=== PATIENT | female | born 1930 | race Caucasian/White ===

== ENCOUNTER 2017-09-09 15:02 | Inpatient (IN) | payer OTHER, MEDICARE ==
[~2017-09-09] VITALS: Ht 147.3 cm; Wt 65.4 kg
[2017-09-09 15:10] VITALS: BP_SYST 136
[2017-09-09 15:36] LABS: BASOPHILS % (AUTO) 0.6 % (0.0-2.0); EOSINOPHILS # (AUTO) 0.3 K/uL (0.0-0.4); EOSINOPHILS % (AUTO) 4.6 % (0.0-4.0); HEMATOCRIT 37.5 % (36-48); HEMOGLOBIN 12.8 g/dL (12.0-16.0); LYMPHOCYTES # (AUTO) 1.3 K/uL (1.0-5.5); LYMPHOCYTES % (AUTO) 18.4 % (20.5-51.5); MEAN CORPUSCULAR HEMOGLOBIN 31 pg (27-31); MEAN CORPUSCULAR HGB CONC 34 % (32-36); MEAN CORPUSCULAR VOLUME 90 fL (79.0-98.0); MONOCYTES # (AUTO) 0.6 K/uL (0.0-1.0); MONOCYTES % (AUTO) 8.3 % (1.7-9.3); NEUTROPHILS % (AUTO) 68.1 % (40.0-70.0); PLATELET COUNT (AUTO) 207 K/uL (130-430); RED BLOOD CELL COUNT(AUTO) 4.16 MIL/uL (4.2-6.2); RED CELL DISTRIBUTION WIDTH 11.3 % (9.0-15.0); WHITE BLOOD COUNT (AUTO) 7.2 K/uL (4.8-10.8)
[2017-09-09 15:44] LABS: ANION GAP 5 (5-15); CHLORIDE 104 mmol/L (98-107); CREATININE 1.19 mg/dL (0.55-1.30); GLUCOSE 155 mg/dL (70-99); SODIUM SERUM 137 mmol/L (136-145); UREA NITROGEN, BLOOD 16 mg/dL (8-21)
[2017-09-09 15:49] LABS: ALANINE AMINOTRANSFERASE 19 U/L (12-78); ALBUMIN 3.5 g/dL (3.4-4.8); ASPARTATE AMINOTRANSFERASE 24 U/L (10-37); TOTAL BILIRUBIN 0.4 mg/dL (0.0-1.0)
[2017-09-09 15:50] LABS: INR 0.9 (0.8-1.2); PROTHROMBIN TIME 8.7 SECS (9.5-12.5)
[2017-09-09] MEDS ORDERED: VENL75CA PO (16:15)
[2017-09-09] MEDS ORDERED: VALS160T2 PO (16:15)
[2017-09-09] MEDS ORDERED: VITD2000 PO (16:15)
[2017-09-09] MEDS ORDERED: SIMV10TA6 PO (16:15)
[2017-09-09] MEDS ORDERED: ASPIRIN 81 MG TAB.CHEW PO ONE (17:00)
[2017-09-09 18:51] VITALS: BP_SYST 135
[2017-09-09] MEDS ORDERED: ZOLPIDEM TARTRATE 5 MG TABLET PO PRN (20:15)
[2017-09-09] MEDS ORDERED: ACETAMINOPHEN 325 MG TABLET PO PRN (20:15)
[2017-09-09] MEDS ORDERED: MORPHINE 2 MG/ML INJ. SYRINGE IVP PRN (20:15)
[2017-09-09] MEDS ORDERED: ONDANSETRON HCL 4 MG/2 ML VIAL IVP PRN (20:15)
[2017-09-09 20:30] VITALS: BP_SYST 131
[2017-09-09] MEDS: SIMVASTATIN 10 MG TABLET PO SCH (20:44)
[2017-09-09] MEDS ORDERED: MILK OF MAGNESIA 30 ML UDC PO PRN (21:45)
[2017-09-09] MEDS ORDERED: MILK OF MAGNESIA 30 ML UDC PO ONE (22:00)
[2017-09-09] MEDS: DOCUSATE SODIUM 250 MG CAPSULE PO SCH (22:22)
[2017-09-09] MEDS ORDERED: HYDROcodone/ACETAMIN 5-325 MG TAB (NORCO/ VICODIN) PO PRN ×2 (22:30)
[2017-09-09 22:37] VITALS: BP_SYST 130
[2017-09-10 07:28] LABS: BASOPHILS % (AUTO) 0.7 % (0.0-2.0); EOSINOPHILS # (AUTO) 0.4 K/uL (0.0-0.4); EOSINOPHILS % (AUTO) 7.1 % (0.0-4.0); HEMATOCRIT 33.2 % (36-48); HEMOGLOBIN 11.3 g/dL (12.0-16.0); LYMPHOCYTES # (AUTO) 1.5 K/uL (1.0-5.5); LYMPHOCYTES % (AUTO) 27.1 % (20.5-51.5); MEAN CORPUSCULAR HEMOGLOBIN 31 pg (27-31); MEAN CORPUSCULAR HGB CONC 34 % (32-36); MEAN CORPUSCULAR VOLUME 90 fL (79.0-98.0); MONOCYTES # (AUTO) 0.5 K/uL (0.0-1.0); MONOCYTES % (AUTO) 9.6 % (1.7-9.3); NEUTROPHILS # (AUTO) 3.2 K/uL (1.8-7.7); PLATELET COUNT (AUTO) 187 K/uL (130-430); RED BLOOD CELL COUNT(AUTO) 3.71 MIL/uL (4.2-6.2); RED CELL DISTRIBUTION WIDTH 11.2 % (9.0-15.0); WHITE BLOOD COUNT (AUTO) 5.6 K/uL (4.8-10.8)
[2017-09-10 07:45] VITALS: BP_SYST 136
[2017-09-10 08:01] LABS: ANION GAP 5 (5-15); CALCIUM 9.5 mg/dL (8.4-11.0); CHLORIDE 109 mmol/L (98-107); CREATININE 0.84 mg/dL (0.55-1.30); GLUCOSE 88 mg/dL (70-99); POTASSIUM 4.6 mmol/L (3.5-5.1); SODIUM SERUM 142 mmol/L (136-145); UREA NITROGEN, BLOOD 15 mg/dL (8-21)
[2017-09-10 08:10] LABS: TOTAL BILIRUBIN 0.3 mg/dL (0.0-1.0)
[2017-09-10 08:11] LABS: ALANINE AMINOTRANSFERASE 10 U/L (12-78); ALBUMIN 2.8 g/dL (3.4-4.8); ASPARTATE AMINOTRANSFERASE 22 U/L (10-37); LIPASE 88 U/L (73-393); THYROID STIMULATING HORMONE 1.96 uIu/mL (0.36-3.74)
[2017-09-10 08:22] LABS: BILIRUBIN,URINE NEGATIVE (NEGATIVE); BLOOD, URINE NEGATIVE (NEGATIVE); CLARITY/URINE CLEAR (CLEAR); COLOR,URINE YELLOW (YELLOW); GLUCOSE,URINE NEGATIVE (NEGATIVE); KETONES,URINE NEGATIVE (NEGATIVE); LEUKOCYTE ESTERASE ,URINE NEGATIVE (NEGATIVE); NITRITE, URINE NEGATIVE (NEGATIVE); PROTEIN URINE NEGATIVE (NEGATIVE); UROBILINOGEN,URINE 0.2 (0.2-1.0)
[2017-09-10 08:45] LABS: NEUTROPHILS % (AUTO) 55.5 % (40.0-70.0)
[2017-09-10] MEDS: CHOLECALCIFEROL (VITAMIN D3) 2,000 UNIT TABLET PO SCH (08:53)
[2017-09-10] MEDS: DOCUSATE SODIUM 250 MG CAPSULE PO SCH ×2 (08:53→20:53)
[2017-09-10] MEDS: Effexor 37.5 MG TAB PO SCH ×2 (08:53→20:53)
[2017-09-10] MEDS ORDERED: VALSARTAN 160 MG TABLET (DIOVAN) PO SCH (09:00)
[2017-09-10] MEDS ORDERED: METOPROLOL SUCCINATE 50 MG TAB.SR.24H (TOPROL XL) PO ONE (11:15)
[2017-09-10 11:33] VITALS: BP_SYST 135
[2017-09-10] MEDS ORDERED: DOCUSATE SODIUM 250 MG CAPSULE PO SCH (14:30)
[2017-09-10 15:28] VITALS: BP_SYST 143
[2017-09-10 19:15] VITALS: BP_SYST 146
[2017-09-10] MEDS: SIMVASTATIN 10 MG TABLET PO SCH (20:53)
[2017-09-11 00:59] VITALS: BP_SYST 122; BP_SYST 156
[2017-09-11 08:20] VITALS: BP_SYST 151
[2017-09-11] MEDS: DOCUSATE SODIUM 250 MG CAPSULE PO SCH ×2 (08:29→20:47)
[2017-09-11] MEDS: Effexor 37.5 MG TAB PO SCH ×2 (08:30→20:47)
[2017-09-11] MEDS: ASPIRIN 81 MG TAB.CHEW PO SCH (08:30)
[2017-09-11] MEDS: CHOLECALCIFEROL (VITAMIN D3) 2,000 UNIT TABLET PO SCH (08:30)
[2017-09-11] MEDS ORDERED: METOPROLOL SUCCINATE 50 MG TAB.SR.24H (TOPROL XL) PO SCH (09:00)
[2017-09-11 12:58] VITALS: BP_SYST 145
[2017-09-11 16:00] VITALS: BP_SYST 170
[2017-09-11] MEDS ORDERED: cloNIDine HCL 0.2 MG TABLET PO PRN (17:15)
[2017-09-11 19:00] VITALS: BP_SYST 120
[2017-09-11 20:00] VITALS: BP_SYST 125
[2017-09-11] MEDS: SIMVASTATIN 10 MG TABLET PO SCH (20:47)
[2017-09-11] MEDS: METOPROLOL SUCCINATE 50 MG TAB.SR.24H (TOPROL XL) PO SCH (20:48)
[2017-09-12] VITALS: BP_SYST 127
[2017-09-12 07:45] VITALS: BP_SYST 155
[2017-09-12] MEDS: ASPIRIN 81 MG TAB.CHEW PO SCH (09:18)
[2017-09-12] MEDS: DOCUSATE SODIUM 250 MG CAPSULE PO SCH (09:18)
[2017-09-12] MEDS: CHOLECALCIFEROL (VITAMIN D3) 2,000 UNIT TABLET PO SCH (09:18)
[2017-09-12] MEDS: Effexor 37.5 MG TAB PO SCH (09:18)
[2017-09-12] MEDS: METOPROLOL SUCCINATE 50 MG TAB.SR.24H (TOPROL XL) PO SCH (09:19)
[2017-09-12 12:12] VITALS: BP_SYST 129
[2017-09-12] MEDS ORDERED: METO50TA7 PO ×2 (12:58→13:13)
[2017-09-12] MEDS ORDERED: ASA81 PO (12:58)
[2017-09-12] MEDS ORDERED: ASPI-1063 PO (13:17)
[2017-09-12 14:20] VITALS: BP_SYST 129
== END 2017-09-12 14:30 | disposition home health service (06) | DRG 309 ==
LOC: SED 15:02 → STU 17:52 → SMU 09-11 19:33
PROVIDERS: ADMIT Internal Medicine; ATTEND Internal Medicine
DX: I47.1 Supraventricular tachycardia (principal); I24.8 Other forms of acute ischemic heart disease; I48.91 Unspecified atrial fibrillation; J44.9 Chronic obstructive pulmonary disease, unspecified; M48.02 Spinal stenosis, cervical region; I10 Essential (primary) hypertension; E78.5 Hyperlipidemia, unspecified; F41.9 Anxiety disorder, unspecified; K21.9 Gastro-esophageal reflux disease without esophagitis; G47.33 Obstructive sleep apnea (adult) (pediatric); M81.0 Age-related osteoporosis without current pathological fracture; J30.9 Allergic rhinitis, unspecified; I49.9 Cardiac arrhythmia, unspecified; Z87.891 Personal history of nicotine dependence; Z90.710 Acquired absence of both cervix and uterus; Z91.040 Latex allergy status; Z88.8 Allergy status to other drugs, medicaments and biological substances; Z79.899 Other long term (current) drug therapy; Z85.44 Personal history of malignant neoplasm of other female genital organs
CPT/HCPCS: 36415; 71045; 80053; 80061; 81003; 82550-TC; 83690-TC; 83880; 84443-TC; 84484; 85025; 85610-TC; 85730-TC; 87081; 93005; 93306; 99285

== ENCOUNTER 2020-03-06 08:18 | Emergency (ER) | payer OTHER, MEDICARE ==
[~2020-03-06] VITALS: Ht 149.9 cm; Wt 68.0 kg
[2020-03-06 08:18] VITALS: BP_SYST 164
[~2020-03-06 08:18] MED LIST: ASA81 PO; ASPI-1457 PO; METO50TA7 PO; SIMV10TA97 PO; VENL75CA PO; VITD2000 PO
[2020-03-06] MEDS ORDERED: IPRATROPIUM/ALBUTEROL SULFATE 3 ML AMPUL.NEB (DUONEB) INH ONE (08:30)
[2020-03-06] MEDS ORDERED: methylPREDNISolone SOD SUCC 500 MG/VIAL (Solu-MEDROL) IV ONE (08:30)
[2020-03-06 09:14] LABS: BASOPHILS % (AUTO) 0.5 % (0.0-2.0); EOSINOPHILS # (AUTO) 0.5 K/uL (0.0-0.4); EOSINOPHILS % (AUTO) 6.9 % (0.0-4.0); HEMATOCRIT 43.7 % (36-48); HEMOGLOBIN 14.6 g/dL (12.0-16.0); LYMPHOCYTES % (AUTO) 15.5 % (20.5-51.5); MEAN CORPUSCULAR HEMOGLOBIN 30 pg (27-31); MEAN CORPUSCULAR HGB CONC 33 % (32-36); MEAN CORPUSCULAR VOLUME 90 fL (79.0-98.0); MONOCYTES # (AUTO) 0.4 K/uL (0.0-1.0); MONOCYTES % (AUTO) 6.6 % (1.7-9.3); NEUTROPHILS # (AUTO) 4.7 K/uL (1.8-7.7); NEUTROPHILS % (AUTO) 70.5 % (40.0-70.0); PLATELET COUNT (AUTO) 217 K/uL (130-430); RED BLOOD CELL COUNT(AUTO) 4.84 MIL/uL (4.2-6.2); RED CELL DISTRIBUTION WIDTH 12.9 % (9.0-15.0); WHITE BLOOD COUNT (AUTO) 6.6 K/uL (4.8-10.8)
[2020-03-06] MEDS ORDERED: ONDANSETRON HCL 4 MG/2 ML VIAL IVP ONE (09:15)
[2020-03-06 09:21] LABS: ANION GAP 3 (5-15); CALCIUM 10.1 mg/dL (8.4-11.0); CHLORIDE 105 mmol/L (98-107); CREATININE 1.01 mg/dL (0.55-1.30); GLUCOSE 113 mg/dL (70-99); POTASSIUM 4.7 mmol/L (3.5-5.1); SODIUM SERUM 138 mmol/L (136-145); UREA NITROGEN, BLOOD 15 mg/dL (8-21)
[2020-03-06 09:28] LABS: ALANINE AMINOTRANSFERASE 17 U/L (12-78); ALBUMIN 3.7 g/dL (3.4-4.8); ASPARTATE AMINOTRANSFERASE 19 U/L (10-37); INR 0.9 (0.8-1.2); LACTATE DEHYDROGENASE 124 U/L (81-234); PROTHROMBIN TIME 9.4 SECS (9.5-12.5); TOTAL BILIRUBIN 0.6 mg/dL (0.0-1.0)
[2020-03-06 09:37] LABS: C-REACTIVE PROTEIN QUANT 0.3 mg/dL (0-0.5)
[2020-03-06] MEDS ORDERED: LevALBUTEROL HCL 1.25 MG/0.5 ML *CONC.* VIAL.NEB (XOPENEX CONC.) INH ONE (10:00)
[2020-03-06] MEDS ORDERED: METO50TA7 PO (10:44)
[2020-03-06] MEDS ORDERED: levalbuterol HCL 0.63 MG/3 ML VIAL.NEB INH ONE (11:30)
[2020-03-06 13:45] VITALS: BP_SYST 164
== END 2020-03-06 15:10 | disposition left against medical advice (07) ==
LOC: SED 08:18
DX: J44.1 Chronic obstructive pulmonary disease with (acute) exacerbation (principal); I10 Essential (primary) hypertension; E78.5 Hyperlipidemia, unspecified; Z79.899 Other long term (current) drug therapy; Z91.040 Latex allergy status; Z20.828 Contact with and (suspected) exposure to other viral communicable diseases
CPT/HCPCS: 36415; 36600; 71045; 80053; 82550-TC; 82728; 82803-TC; 83605; 83615-TC; 83880; 84484; 85025; 85379; 85384-TC; 85610-TC; 85730-TC; 86140; 86886; 86900; 86901; 87040-TC; 93005; 94640; 96374; 96375; 99285